=== PATIENT | male | born 1975 | race Native Hawaiian/Other Pacific Islander ===

== ENCOUNTER 2016-11-26 03:12 | Inpatient (IN) | payer SELFPAY ==
[~2016-11-26] VITALS: Ht 170.2 cm; Wt 77.3 kg
[2016-11-26] VITALS (7 sets, daily range): BP systolic 93–128; BP diastolic 52–82; PULSE 63–84; RESP 16–20; TEMP 98.4–99.5; O2SAT 93–100
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
[2016-11-26] MEDS ORDERED: MORPHINE SULFATE 4 MG/ML INJ IV PUSH ONE (04:45)
[2016-11-26] MEDS ORDERED: ONDANSETRON HCL 4 MG/2 ML VIAL IV PUSH ONE (04:45)
[2016-11-26] MEDS ORDERED: SODIUM CHLORIDE 0.9% FLUSH 10 ML FLUSH IV FLUSH PRN (05:00)
[2016-11-26] MEDS ORDERED: NALOXONE HCL 0.4 MG/ML AMP IV PRN ×2 (05:00→15:15)
[2016-11-26] MEDS ORDERED: HYDROmorphone HCL PF 1 MG/ML VIAL IV PUSH ONE (05:15)
[2016-11-26 05:16] LABS: AUTOMATED NEUTROPHIL # 11.9 TH/MM3 (1.8-7.7); BASOPHIL # 0.1 TH/MM3 (0-0.2); BASOPHIL % 0.5 % (0.0-2.0); EOSINOPHIL # 0.1 TH/MM3 (0-0.4); HEMATOCRIT 41.4 % (39.0-51.0); HEMO FLAGS DIFF FINAL; LYMPH % 9.4 % (9.0-44.0); LYMPHOCYTE # 1.4 TH/MM3 (1.0-4.8); MEAN CELL VOLUME 85.5 FL (80.0-100.0); MEAN CORPUSCULAR HEMOGLOBIN 29.5 PG (27.0-34.0); MEAN CORPUSCULAR HGB CONC 34.5 % (32.0-36.0); NEUT % 82.1 % (16.0-70.0); PLATELET COUNT 230 TH/MM3 (150-450); RED BLOOD COUNT 4.84 MIL/MM3 (4.50-5.90); RED CELL DISTRIBUTION WIDTH 12.9 % (11.6-17.2); WHITE BLOOD COUNT 14.4 TH/MM3 (4.0-11.0)
[2016-11-26] MEDS: SODIUM CHLOR 0.9% 1000 ML INJ 1,000 ML IV SCH (05:19)
[2016-11-26 05:28] LABS: APTT (PATIENT) 22.4 SEC (24.3-30.1); PROTHROMBIN TIME - PATIENT 10.8 SEC (9.8-11.6)
[2016-11-26 05:30] LABS: BICARBONATE 26.7 MEQ/L (21.0-32.0); POTASSIUM 3.9 MEQ/L (3.5-5.1)
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
[2016-11-26] MEDS ORDERED: SODIUM CHLORIDE 0.9% FLUSH 10 ML FLUSH IV FLUSH SCH (09:00)
[2016-11-26] MEDS: MORPHINE SULFATE 4 MG/ML INJ IV PUSH PRN ×2 (10:43→13:37)
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
[2016-11-26] MEDS ORDERED: ACETAMINOPHEN/HYDROcodone 325 MG/5 MG TAB PO PRN (15:15)
[2016-11-26] MEDS ORDERED: HYDROmorphone HCL PF 1 MG/ML VIAL IV PRN ×2 (15:15)
[2016-11-26] MEDS: ACETAMINOPHEN/HYDROcodone 325 MG/10 MG TAB PO PRN ×2 (15:32→21:06)
[2016-11-26] MEDS: HYDROmorphone HCL PF 1 MG/ML VIAL IV PRN ×3 (16:27→23:16)
[2016-11-27] MEDS ORDERED: POVIDONE IODINE 5% (ANTISEPSIS KIT) 4 APPLICATIONS EACH NARE PRN (01:45)
[2016-11-27] MEDS ORDERED: CHLORHEXIDINE GLUCONATE 2 % 1 PACK (2 CLOTHS) TOPICAL PRN (01:45)
[2016-11-27] MEDS ORDERED: INSULIN HUMAN REGULAR 1,000 UNITS/10 ML VIAL SQ PRN (01:45)
[2016-11-27] MEDS ORDERED: LACTATED RINGER'S 1000 ML IV PRN (01:45)
[2016-11-27] MEDS ORDERED: SODIUM CHLORID 0.9% 500 ML IV PRN (01:45)
[2016-11-27 04:05] VITALS: BP 118/72; PULSE 86; RESP 16; TEMP 99.2; O2SAT 96
[2016-11-27] MEDS: HYDROmorphone HCL PF 1 MG/ML VIAL IV PRN (05:59)
[2016-11-27 06:24] LABS: AUTOMATED NEUTROPHIL # 10.6 TH/MM3 (1.8-7.7); BASOPHIL % 0.2 % (0.0-2.0); EOSINOPHIL # 0.1 TH/MM3 (0-0.4); EOSINOPHIL % 0.6 % (0.0-4.0); HEMATOCRIT 37.9 % (39.0-51.0); HEMO FLAGS DIFF FINAL; LYMPH % 7.5 % (9.0-44.0); LYMPHOCYTE # 0.9 TH/MM3 (1.0-4.8); MEAN CELL VOLUME 86.1 FL (80.0-100.0); MEAN CORPUSCULAR HEMOGLOBIN 29.5 PG (27.0-34.0); MEAN CORPUSCULAR HGB CONC 34.3 % (32.0-36.0); MONO % 6.9 % (0.0-8.0); NEUT % 84.8 % (16.0-70.0); PLATELET COUNT 189 TH/MM3 (150-450); RED CELL DISTRIBUTION WIDTH 12.6 % (11.6-17.2); WHITE BLOOD COUNT 12.5 TH/MM3 (4.0-11.0)
--- NOTE | 2016-11-27 06:33 | PD.ORT.PN ---
Subjective Subjective Remarks pain controlled Objective Vitals Vital Signs Date Time Temp Pulse Resp B/P Pulse Ox O2 Delivery O2 Flow Rate FiO2 11/27/16 04:05 99.2 86 16 118/72 96 11/26/16 23:30 99.2 78 19 125/82 93 11/26/16 21:04 98.6 70 20 123/74 97 11/26/16 17:14 98.9 70 18 128/79 99 11/26/16 16:57 20 11/26/16 16:32 20 11/26/16 14:05 99.5 63 16 112/74 99 I/O 11/26/16 11/26/16 11/26/16 11/27/16 11/27/16 11/27/16 07:00 15:00 23:00 07:00 15:00 23:00 Intake Total 240 ml Output Total 350 ml Balance -110 ml Intake Oral 240 ml Output Urine Total 350 ml # Bowel Movements 0 Result Diagram: 11/27/16 0543 11/26/16 0455 Imaging Last 24 hours Impressions Shoulder X-Ray 11/26/16317 Signed Impressions: Service Date/Time: Saturday, November 26, 2016 03:41 - CONCLUSION: Unremarkable limited examination of the right shoulder. Jose Daniel Hunter MD Shoulder X-Ray 11/26/16317 Signed Impressions: Service Date/Time: Saturday, November 26, 2016 03:37 - CONCLUSION: Humeral neck fracture. Jose Daniel Hunter MD Head CT 11/26/16317 Signed Impressions: Service Date/Time: Saturday, November 26, 2016 03:47 - CONCLUSION: Normal examination except for extensive sinus disease. Jose Daniel Hunter MD Chest X-Ray 11/26/16317 Signed Impressions: Service Date/Time: Saturday, November 26, 2016 03:35 - CONCLUSION: Normal examination. Jose Daniel Hunter MD Cervical Spine CT 11/26/16317 Signed Impressions: Service Date/Time: Saturday, November 26, 2016 03:47 - CONCLUSION: Normal examination except mild degenerative arthritis at the C4-5 level. Jose Daniel Hunter MD Objective Remarks LUE: no sling. NVI Assessment & Plan Assessment and Plan 1) Left Proximal Humerus Fx - surgery today -NPO -sign consents Moise Pacheco Jr. Nov 27, 2016 06:33
[2016-11-27 06:39] LABS: BICARBONATE 26.8 MEQ/L (21.0-32.0); POTASSIUM 3.6 MEQ/L (3.5-5.1)
[2016-11-27 08:00] VITALS: BP 117/76; PULSE 74; RESP 20; TEMP 99.1; O2SAT 92
[2016-11-27] MEDS ORDERED: GENTAMICIN SULFATE 80 MG/2 ML VIAL ONE (09:35)
[2016-11-27] MEDS ORDERED: ACETAMINOPHEN 1000 MG/100 ML VIAL IV ONE (10:01)
[2016-11-27] MEDS ORDERED: FAMOTIDINE 20 MG/2 ML VIAL ONE (10:02)
[2016-11-27] MEDS ORDERED: fentaNYL CITRATE 250 MCG/5 ML AMP ONE ×2 (10:02→12:11)
[2016-11-27] MEDS ORDERED: MIDAZOLAM HCL 2 MG/2 ML VIAL ONE (10:02)
[2016-11-27] MEDS ORDERED: ONDANSETRON HCL 4 MG/2 ML VIAL ONE (10:02)
[2016-11-27] MEDS ORDERED: SODIUM CHLOR 0.9% 250 ML INJ 250 ML ONE (10:10)
[2016-11-27] MEDS ORDERED: VANCOMYCIN HCL 1000 MG VIAL ONE (10:10)
[2016-11-27] MEDS ORDERED: ceFAZolin 2 GM PREMIX 50 ML ONE (10:10)
[2016-11-27] MEDS ORDERED: SODIUM CHLORIDE 0.9% FLUSH 5 ML FLUSH IVF PRN (10:30)
[2016-11-27] MEDS ORDERED: ONDANSETRON HCL 4 MG/2 ML VIAL IVP PRN (10:30)
[2016-11-27] MEDS ORDERED: diphenhydrAMINE HCL 25 MG CAP PO PRN (10:30)
--- NOTE | 2016-11-27 10:30 | PD.OP ---
cc: William Villarreal MD Operative Report Date of Surgery: Nov 27, 2016 Preoperative Diagnosis: Displaced left proximal humerus fracture Postoperative Diagnosis: Procedure: Displaced left proximal humerus fracture Anesthesia: Gen. Surgeon: William Villarreal Managing Consultant Clinical Professor(s): RODNEY Hernández PA-C The surgical procedure was assisted by my physician marketing operations assistant. My P.A. presence was necessary throughout this case for the manipulation and positioning of the surgical extremity. My P.A. was assisting me throughout the duration of this procedure. The skill set of a physician marketing operations assistant was medically necessary to complete this procedure. During the surgical case the surgical assistant certified was working at the back table and the physician marketing operations assistant was directly assisting me. Operation and Findings: Patient was seen and evaluated preoperatively. Patient was found to have a displaced proximal humerus fracture. The risks and benefits of surgical and nonsurgical options were discussed in detail and informed consent was obtained for surgery. Patient was brought to the operating room and placed on or table. IV sedation and GETA were administered by anesthesiologist. Antibiotics were given prior to incision. Operative arm and shoulder were prepped with alcohol followed by Hibiclens and draped usual sterile fashion. Timeout procedure was performed. Procedure began with a 5 inch incision over the anterior shoulder. Cephalic vein was identified. A deltopectoral approach was utilized. The fracture was now visualized. Soft tissue was retracted. Attention was now turned to reduction. Gentle traction was applied. The humeral shaft was reduced to the humeral head. Fracture was manipulated to achieve excellent reduction. Multiplanar fluoroscopy confirmed well aligned fracture. Multiple K wires were used to hold provisional fixation. A Synthes proximal humerus plate was selected. Plate was provisionally held in place K wires. 3.5 cortical screws were used to compress plate to bone. Fluoroscopy confirmed appropriate plate placement and fracture reduction. Multiple locking screws were now placed in the humeral head. Screws were predrilled and premeasured for appropriate length. Care was taken not to penetrate the articular surface. Additional screws were placed in the humeral shaft. Final fluoroscopy revealed well aligned fracture with well-placed hardware. Wound was thoroughly irrigated. Fascia was closed with #1 Vicryl, subcutaneous tissues closed with 3-0 Vicryl, and skin was closed with ana. Sterile dressings were applied. Patient was placed into a sling. Patient was awakened and transferred to recovery in stable condition. Needle and sponge counts were correct. William Villarreal MD Nov 27, 2016 10:30 William Villarreal MD Nov 27, 2016 10:30
[2016-11-27] MEDS ORDERED: BACITRACIN TOP OINT 15 GM TUBE ONE (11:32)
[2016-11-27] MEDS ORDERED: HYDR-3366 PO (11:55)
--- NOTE | 2016-11-27 11:59 | HHI.FF ---
Face to Face Verification Diagnosis: (1) Fracture of neck of left humerus Occupational Therapy Left UE Weight Bearing: Non WB Left UE Range of Motion: Pendular Nursing Dressing Changes: Daily dressing change, Xeroform, Coverderm/Primapore Additional Instructions Bacitracin and adaptic over left elbow I have seen patient La Black on 11/27/16. My clinical findings support the need for the requested home health care services because: Limited ability to care for self I certify that my clinical findings support that this patient is homebound because: Post-op weakness Moise Pacheco Jr. Nov 27, 2016 11:59
[2016-11-27] MEDS ORDERED: PROPOFOL 200 MG/20 ML AMP IV ONE (12:00)
[2016-11-27] MEDS ORDERED: NEOSTIGMINE 3 MG/3 ML SYR IV ONE (12:00)
[2016-11-27] MEDS ORDERED: ONDANSETRON HCL 4 MG/2 ML VIAL IV PUSH ONE (12:00)
[2016-11-27] MEDS ORDERED: *morphine SULFATE 8 MG/ML PERIprocedure ONLY ONE (12:38)
--- NOTE | 2016-11-27 13:01 | RADRPT ---
EXAM DATE/TIME: 11/27/2016 11:17 [facility] COMPARISON: No previous studies available for comparison. INDICATIONS : ORIF left proximal humerus. MEDICAL HISTORY : None. SURGICAL HISTORY : None. ENCOUNTER: Subsequent ACUITY: 2 days PAIN SCORE: Non-responsive. LOCATION: Left proximal humerus. FINDINGS: Side plate and multiple screws traverse the humerus with excellent anatomical alignment of the fractu re fragments. CONCLUSION: Intact postsurgical changes for technique. Susu Siegel MD on November 27, 2016 at 12:59 Board Certified Radiologist. This report was verified electronically.
[2016-11-27 13:10] VITALS: BP 118/82; PULSE 57; RESP 20; TEMP 98.8; O2SAT 98
[2016-11-27] MEDS: CALCIUM/VITAMIN D 250 MG/125 U TAB PO SCH ×2 (13:21→18:52)
[2016-11-27] MEDS: ACETAMINOPHEN/HYDROcodone 325 MG/10 MG TAB PO PRN ×2 (13:21→18:51)
[2016-11-27] MEDS: MORPHINE SULFATE 4 MG/ML INJ IV PUSH PRN ×2 (15:48→20:01)
[2016-11-27 16:00] VITALS: BP 116/79; PULSE 77; RESP 20; TEMP 97.5; O2SAT 91
--- NOTE | 2016-11-27 17:21 | HHI.PR ---
Subjective Remarks "I hurt all over." Pt seen after surgery in his room. Pt denied fever, N/V/D/C, cough, shortness of breath. Voiced concerns about being able to move his left arm and care for himself at home. Pt did not appear to be in acute distress. Objective Vitals Vital Signs Date Time Temp Pulse Resp B/P Pulse Ox O2 Delivery O2 Flow Rate FiO2 11/27/16 14:01 16 11/27/16 13:10 98.8 57 20 118/82 98 11/27/16 12:45 97.8 67 14 120/76 97 Nasal Cannula 2 11/27/16 12:30 67 14 138/86 97 Nasal Cannula 2 11/27/16 12:15 63 14 131/81 96 Nasal Cannula 2 11/27/16 12:00 69 14 136/82 97 Nasal Cannula 4 11/27/16 11:55 97.8 82 14 126/86 97 Nasal Cannula 4 11/27/16 08:00 99.1 74 20 117/76 92 11/27/16 07:30 16 11/27/16 04:05 99.2 86 16 118/72 96 11/26/16 23:30 99.2 78 19 125/82 93 11/26/16 21:04 98.6 70 20 123/74 97 11/26/16 17:14 98.9 70 18 128/79 99 I/O 11/26/16 11/26/16 11/26/16 11/27/16 11/27/16 11/27/16 07:00 15:00 23:00 07:00 15:00 23:00 Intake Total 240 ml 900 ml Output Total 350 ml 150 ml Balance -110 ml 750 ml Intake Oral 240 ml Other 900 ml Output Urine Total 350 ml Estimated Blood Loss 150 ml # Voids 0 # Bowel Movements 0 0 Result Diagram: 11/27/16 0543 11/27/16 0543 Imaging Last 24 hours Impressions Shoulder X-Ray 11/27/16 0000 Signed Impressions: Service Date/Time: November 11:17 - CONCLUSION: Intact postsurgical changes for technique. Susu Siegel MD Objective Remarks GENERAL: SKIN: Warm and dry. Abrasions noted on face. HEAD: Normocephalic. EYES: No scleral icterus. No injection or drainage. NECK: Supple, trachea midline. No JVD or lymphadenopathy. CARDIOVASCULAR: Regular rate and rhythm without murmurs, gallops, or rubs. RESPIRATORY: Breath sounds equal bilaterally. No accessory muscle use. GASTROINTESTINAL: Abdomen soft, non-tender, nondistended. MUSCULOSKELETAL: No cyanosis, or edema. Left arm noted to have surgical dressing and was in a sling. BACK: Nontender without obvious deformity. Procedures Surgical repair of fractured left humerus. Medications and IVs Current Medications Medications (Trade) Dose Ordered Sig/Alfredo Route Start Time Stop Time Status Last Admin (NS 1000 ml Inj) 1,000 ml @ 125 mls/hr Q8H IV 11/26/16 04:45 11/26/16 05:19 (Dilaudid Pf Inj) 0.5 mg Q3H PRN IV 11/26/16 15:15 (Dilaudid Pf Inj) 1 mg Q3H PRN IV 11/26/16 15:15 11/27/16 05:59 (Narcan Inj) 0.4 mg UNSCH PRN IV 11/26/16 15:15 Neomycin/ Polymyxin/ Bacitracin 1 applic 1 applic DAILY TOPICAL 11/26/16 17:30 Lactated Ringer's 1,000 ml @ 30 mls/hr Q24H PRN IV 11/27/16 01:45 11/30/16 01:44 (NS 500 ml Inj) 500 ml @ 30 mls/hr [id number] PRN IV 11/27/16 01:45 11/30/16 01:44 (NS Flush) 2 ml UNSCH PRN IVF 11/27/16 10:30 (NS Flush) 2 ml BID IVF 11/27/16 21:00 Senna/Docusate Sodium 1 tab 1 tab BID PO 11/27/16 21:00 (Ancef 2 Gm Premix) 50 ml @ 100 mls/hr Q8H IV 11/27/16 18:00 11/28/16 10:29 (Fordyce 10-325 Mg) 1 tab Q3H PRN PO 11/27/16 10:30 11/27/16 13:21 (Zofran Inj) 4 mg Q4H PRN IVP 11/27/16 10:30 (Oscal-D 250-125) 250 mg TID PO 11/27/16 13:00 11/27/16 13:21 (Benadryl) 25 mg Q6H PRN PO 11/27/16 10:30 (Morphine Inj) 4 mg Q3H PRN IV PUSH 11/27/16 10:30 11/27/16 15:48 Urinary Catheter: No Vascular Central Line Catheter: No A/P Problem List: (1) Fracture of neck of left humerus ICD Code: S42.212A Status: Acute (2) Closed head injury ICD Code: S09.90XA Status: Acute (3) Multiple abrasions ICD Code: T14.8 Status: Acute Plan: (4) Tobacco abuse ICD Code: Z72.0 Status: Acute Assessment and Plan Fracture of neck of left humerus Orthopedics has seen pt and is planning on surgery tomorrow. they have placed pt on normal diet for today and NPO after midnight. Pain to be managed on PRN basis however with his low blood pressure, strong narcotic use will be avoided. 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 11/27/16 Pt underwent surgical repair. Pain and rehabilitation to be managed by orthopedics. At time of interview, pt voiced significant pain. Closed head injury Monitor with neuro checks. 11/27/16 No change in mental status noted/reported. Continue neuro-checks. Multiple abrasions Wound care 11/27/16 Abrasions are being attended to by nursing staff. tobacco Abuse Pt informed he will not be able to smoke while in hospital. Nicoderm patch may adversely effect healing process. Withdrawal to be addressed with other agents. 11/27/16 Pt has not required nicotine supplementation or adjunctive agents for withdrawal within the past 24 hours. Written by Jaime Bearden, acting as scribe for Dr. Dillard on 11/27/16 at 17:20. This note was transcribed by [email or web address] SMITH. I, Dr. Lisa Dillard personally performed the history, physical exam, and medical decision making; and confirmed the accuracy of the information in the transcribed note. Authenticated by Dr. Lisa Dillard on 11/27/16 at 17:20. Problem Qualifiers (1) Fracture of neck of left humerus: Qualified Code: S42.212A - Fracture of neck of left humerus, closed, initial encounter (2) Closed head injury: Qualified Code: S09.90XA - Closed head injury, initial encounter Jaime Bearden Jr. Nov 27, 2016 17:21 Lisa Dillard MD Nov 27, 2016 18:28
[2016-11-27] MEDS: ceFAZolin 2 GM PREMIX 50 ML IV SCH (18:56)
[2016-11-27] MEDS: DOCUSATE SODIUM 50 MG/SENNA 8.6 MG TAB PO SCH (20:01)
[2016-11-27] MEDS: SODIUM CHLORIDE 0.9% FLUSH 5 ML FLUSH IVF SCH (20:01)
[2016-11-27 20:55] VITALS: BP 116/68; PULSE 95; RESP 17; TEMP 100; O2SAT 94
[2016-11-27 23:05] VITALS: BP 118/73; PULSE 92; RESP 18; TEMP 100; O2SAT 94
[2016-11-28] MEDS: ceFAZolin 2 GM PREMIX 50 ML IV SCH (02:59)
[2016-11-28] MEDS: ACETAMINOPHEN/HYDROcodone 325 MG/10 MG TAB PO PRN ×5 (03:15→23:19)
[2016-11-28] MEDS: SODIUM CHLOR 0.9% 1000 ML INJ 1,000 ML IV SCH ×2 (04:45→20:45)
[2016-11-28 05:00] VITALS: BP 122/77; PULSE 79; RESP 19; TEMP 100.2; O2SAT 94
--- NOTE | 2016-11-28 06:51 | PD.ORT.PN ---
Subjective Subjective Remarks pain controlled Objective Vitals Vital Signs Date Time Temp Pulse Resp B/P Pulse Ox O2 Delivery O2 Flow Rate FiO2 11/28/16 05:00 100.2 79 19 122/77 94 11/27/16 23:05 100.0 92 18 118/73 94 11/27/16 20:55 100.0 95 17 116/68 94 11/27/16 19:43 16 11/27/16 16:20 16 11/27/16 16:00 97.5 77 20 116/79 91 11/27/16 13:10 98.8 57 20 118/82 98 11/27/16 12:45 97.8 67 14 120/76 97 Nasal Cannula 2 11/27/16 12:30 67 14 138/86 97 Nasal Cannula 2 11/27/16 12:15 63 14 131/81 96 Nasal Cannula 2 11/27/16 12:00 69 14 136/82 97 Nasal Cannula 4 11/27/16 11:55 97.8 82 14 126/86 97 Nasal Cannula 4 11/27/16 08:00 99.1 74 20 117/76 92 11/27/16 07:30 16 I/O 11/27/16 11/27/16 11/27/16 11/28/16 11/28/16 11/28/16 07:00 15:00 23:00 07:00 15:00 23:00 Intake Total 1000 ml 480 ml Output Total 500 ml Balance 500 ml 480 ml Intake Oral 100 ml 480 ml Other 900 ml Output Urine Total 350 ml Estimated Blood Loss 150 ml # Voids 0 1 # Bowel Movements 0 0 0 Result Diagram: 11/27/16 0543 11/27/16 0543 Imaging Last 24 hours Impressions Shoulder X-Ray 11/26/16317 Signed Impressions: Service Date/Time: Saturday, November 26, 2016 03:41 - CONCLUSION: Unremarkable limited examination of the right shoulder. Jose Daniel Hunter MD Shoulder X-Ray 11/26/16317 Signed Impressions: Service Date/Time: Saturday, November 26, 2016 03:37 - CONCLUSION: Humeral neck fracture. Jose Daniel Hunter MD Head CT 11/26/16317 Signed Impressions: Service Date/Time: Saturday, November 26, 2016 03:47 - CONCLUSION: Normal examination except for extensive sinus disease. Jose Daniel Hunter MD Chest X-Ray 11/26/16317 Signed Impressions: Service Date/Time: Saturday, November 26, 2016 03:35 - CONCLUSION: Normal examination. Jose Daniel Hunter MD Cervical Spine CT 11/26/16317 Signed Impressions: Service Date/Time: Saturday, November 26, 2016 03:47 - CONCLUSION: Normal examination except mild degenerative arthritis at the C4-5 level. Jose Daniel Hunter MD Objective Remarks Left upper extremity: Sling and swath in place. Clean dry dressings intact. Dressings over elbow for abrasion with bacitracin and Xeroform. Distally intact sensation with full extension and flexion of fingers. Good capillary refills Assessment & Plan Assessment and Plan 1) Left Proximal Humerus Fx ORIF POD 1 Nonweightbearing left upper extremity with sling and swath. Wear at all times except for physical therapy Physical therapy for pendulum swings for education Daily dressing changes beginning POD 2 Plan for discharge tomorrow since he lives alone. Oral pain control Incision must stay clean and dry with no showers Follow-up with Dr. Villarreal or [facility] in 2 weeks Moise Pacheco Jr. Nov 28, 2016 06:51
[2016-11-28 08:00] VITALS: BP 125/79; PULSE 90; RESP 18; TEMP 97.9; O2SAT 96
[2016-11-28] MEDS: NEOMYCIN/POLYMYXIN/BACITRACIN OINT 15 GM TUBE TOPICAL SCH ×2 (09:00→10:31)
[2016-11-28] MEDS: SODIUM CHLORIDE 0.9% FLUSH 5 ML FLUSH IVF SCH ×2 (09:00→20:19)
[2016-11-28] MEDS: CALCIUM/VITAMIN D 250 MG/125 U TAB PO SCH ×3 (10:28→17:39)
[2016-11-28] MEDS: DOCUSATE SODIUM 50 MG/SENNA 8.6 MG TAB PO SCH ×2 (10:28→20:18)
--- NOTE | 2016-11-28 11:52 | HHI.PR ---
Subjective Remarks The patient was in the morning. Sitting in the chair, daily prescription medications. Still requiring IV pain medications. Transitioned to by mouth pain medications today, plan to discharge tomorrow for her. Denies fever chills nausea or vomiting. No constipation. No tremors. No alcohol withdrawal symptoms this time. Objective Vitals Vital Signs Date Time Temp Pulse Resp B/P Pulse Ox O2 Delivery O2 Flow Rate FiO2 11/28/16 08:00 97.9 90 18 125/79 96 11/28/16 05:00 100.2 79 19 122/77 94 11/27/16 23:05 100.0 92 18 118/73 94 11/27/16 20:55 100.0 95 17 116/68 94 11/27/16 19:43 16 11/27/16 16:20 16 11/27/16 16:00 97.5 77 20 116/79 91 11/27/16 13:10 98.8 57 20 118/82 98 11/27/16 12:45 97.8 67 14 120/76 97 Nasal Cannula 2 11/27/16 12:30 67 14 138/86 97 Nasal Cannula 2 11/27/16 12:15 63 14 131/81 96 Nasal Cannula 2 11/27/16 12:00 69 14 136/82 97 Nasal Cannula 4 11/27/16 11:55 97.8 82 14 126/86 97 Nasal Cannula 4 I/O 11/27/16 11/27/16 11/27/16 11/28/16 11/28/16 11/28/16 07:00 15:00 23:00 07:00 15:00 23:00 Intake Total 1000 ml 480 ml 720 ml Output Total 500 ml Balance 500 ml 480 ml 720 ml Intake Oral 100 ml 480 ml 720 ml Other 900 ml Output Urine Total 350 ml Estimated Blood Loss 150 ml # Voids 0 1 3 1 # Bowel Movements 0 0 0 0 1 Result Diagram: 11/27/16 0543 11/27/16 0543 Imaging Last Impressions Shoulder X-Ray 11/27/16 0000 Signed Impressions: Service Date/Time: November 11:17 - CONCLUSION: Intact postsurgical changes for technique. Susu Siegel MD Head CT 11/26/16 0318 Signed Impressions: Service Date/Time: Saturday, November 26, 2016 03:47 - CONCLUSION: Normal examination except for extensive sinus disease. Jose Daniel Hunter MD Chest X-Ray 11/26/16317 Signed Impressions: Service Date/Time: Saturday, November 26, 2016 03:35 - CONCLUSION: Normal examination. Jose Daniel Hunter MD Cervical Spine CT 11/26/16317 Signed Impressions: Service Date/Time: Saturday, November 26, 2016 03:47 - CONCLUSION: Normal examination except mild degenerative arthritis at the C4-5 level. Jose Daniel Hunter MD Objective Remarks GENERAL: 41-year-old male, well-nourished to the patient, appears in no acute distress. SKIN: Warm and dry. Abrasions noted on face. HEAD: Normocephalic. EYES: No scleral icterus. No injection or drainage. NECK: Supple, trachea midline. No JVD or lymphadenopathy. CARDIOVASCULAR: Regular rate and rhythm without murmurs, gallops, or rubs. RESPIRATORY: Breath sounds equal bilaterally. No accessory muscle use. GASTROINTESTINAL: Abdomen soft, non-tender, nondistended. MUSCULOSKELETAL: No cyanosis, or edema. Left arm noted to have surgical dressing and was in a sling. BACK: Nontender without obvious deformity. Procedures Surgical repair of fractured left humerus. A/P Problem List: (1) Fracture of neck of left humerus ICD Code: S42.212A Status: Acute (2) Closed head injury ICD Code: S09.90XA Status: Acute (3) Multiple abrasions ICD Code: T14.8 Status: Acute (4) Tobacco abuse ICD Code: Z72.0 Status: Acute Assessment and Plan Fracture of neck of left humerus Orthopedics following , Dr Cuellar Pain to be managed on PRN basis however with his low blood pressure, strong narcotic use will be avoided. Pain meds per pain scale as tolerated. Antiemetics, laxatives, softeners S/P Surgical repair of fractured left humerus by Dr Cuellar Closed head injury Monitor with neuro checks. No change in mental status noted/reported. Continue neuro-checks. Multiple abrasions- Wound care. Abrasions are being attended to by nursing staff. Tobacco Abuse Pt informed he will not be able to smoke while in hospital. Nicoderm patch may adversely effect healing process. Withdrawal to be addressed with other agents. Pt has not required nicotine supplementation or adjunctive agents for withdrawal within the past 24 hours. EtOH use. Counselled. Monitor for withdrawal symptoms. CIWA protocol. DC telemetry. Discussed with the patient., nurse Problem Qualifiers (1) Fracture of neck of left humerus: Qualified Code: S42.212A - Fracture of neck of left humerus, closed, initial encounter (2) Closed head injury: Qualified Code: S09.90XA - Closed head injury, initial encounter Lisa Dillard MD Nov 28, 2016 11:52
[2016-11-28 12:00] VITALS: BP 123/78; PULSE 87; RESP 18; TEMP 98; O2SAT 92
[2016-11-28] MEDS ORDERED: ceFAZolin 2 GM PREMIX 50 ML IV ONE (13:22)
[2016-11-28 16:00] VITALS: BP 118/69; PULSE 97; RESP 18; TEMP 99.6; O2SAT 92
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
[2016-11-28 20:00] VITALS: BP 127/69; PULSE 86; RESP 24; TEMP 98; O2SAT 90
[2016-11-29] VITALS: BP 103/47; PULSE 73; RESP 20; TEMP 96.9; O2SAT 95
[2016-11-29] MEDS: SODIUM CHLOR 0.9% 1000 ML INJ 1,000 ML IV SCH (00:19)
[2016-11-29] MEDS: ACETAMINOPHEN/HYDROcodone 325 MG/10 MG TAB PO PRN ×3 (03:32→12:51)
[2016-11-29 04:00] VITALS: BP 122/60; PULSE 99; RESP 22; TEMP 99; O2SAT 90
[2016-11-29 08:00] VITALS: BP 111/72; PULSE 85; RESP 18; TEMP 98.1; O2SAT 94
--- NOTE | 2016-11-29 08:06 | PD.ORT.PN ---
Subjective Subjective Remarks Moderate left shoulder pain but controlled with PO meds. Plans to go home today. No new complaints. No other questions or concerns. Objective Vitals Vital Signs Date Time Temp Pulse Resp B/P Pulse Ox O2 Delivery O2 Flow Rate FiO2 11/29/16 04:00 99.0 99 22 122/60 90 11/29/16 00:00 96.9 73 20 103/47 95 11/28/16 20:00 98.0 86 24 127/69 90 11/28/16 19:20 Room Air 11/28/16 18:46 16 11/28/16 16:00 99.6 97 18 118/69 92 11/28/16 12:00 98.0 87 18 123/78 92 I/O 11/28/16 11/28/16 11/28/16 11/29/16 11/29/16 11/29/16 07:00 15:00 23:00 07:00 15:00 23:00 Intake Total 720 ml 700 ml 780 ml 240 ml Balance 720 ml 700 ml 780 ml 240 ml Intake Oral 720 ml 600 ml 780 ml 240 ml IV Total 100 ml # Voids 3 5 2 1 # Bowel Movements 0 2 0 0 Result Diagram: 11/27/16 0543 11/27/16 0543 Imaging Last 24 hours Impressions Shoulder X-Ray 11/26/16317 Signed Impressions: Service Date/Time: Saturday, November 26, 2016 03:41 - CONCLUSION: Unremarkable limited examination of the right shoulder. Jose Daniel Hunter MD Shoulder X-Ray 11/26/16317 Signed Impressions: Service Date/Time: Saturday, November 26, 2016 03:37 - CONCLUSION: Humeral neck fracture. Jose Daniel Hunter MD Head CT 11/26/16317 Signed Impressions: Service Date/Time: Saturday, November 26, 2016 03:47 - CONCLUSION: Normal examination except for extensive sinus disease. Jose Daniel Hunter MD Chest X-Ray 11/26/16317 Signed Impressions: Service Date/Time: Saturday, November 26, 2016 03:35 - CONCLUSION: Normal examination. Jose Daniel Hunter MD Cervical Spine CT 11/26/16317 Signed Impressions: Service Date/Time: Saturday, November 26, 2016 03:47 - CONCLUSION: Normal examination except mild degenerative arthritis at the C4-5 level. Jose Daniel Hunter MD Objective Remarks Sitting up in bed NAD LUE Sling in place, dressing c/d/i, mild swelling, no erythema Dressings over elbow for abrasion with bacitracin and Xeroform. Distally intact sensation with full extension and flexion of fingers. Good capillary refills Assessment & Plan Ortho Post Op Day #: 2 Problem List: Assessment and Plan 1) Left Proximal Humerus Fx ORIF POD 2 Nonweightbearing left upper extremity with sling and swath. Wear at all times except for physical therapy Physical therapy for pendulum swings for education Daily dressing changes beginning POD 2 PO pain control Ok to d/c home today. Follow-up with Dr. Villarreal or [place] in 2 weeks Melissa Lopez Nov 29, 2016 08:06
[2016-11-29] MEDS: DOCUSATE SODIUM 50 MG/SENNA 8.6 MG TAB PO SCH (08:07)
[2016-11-29] MEDS: CALCIUM/VITAMIN D 250 MG/125 U TAB PO SCH ×2 (08:07→12:51)
[2016-11-29] MEDS: SODIUM CHLORIDE 0.9% FLUSH 5 ML FLUSH IVF SCH (08:10)
[2016-11-29] MEDS: NEOMYCIN/POLYMYXIN/BACITRACIN OINT 15 GM TUBE TOPICAL SCH (08:11)
[2016-11-29] MEDS ORDERED: COLA100C3 PO (09:47)
[2016-11-29 12:00] VITALS: BP 121/72; PULSE 80; RESP 18; TEMP 97.2; O2SAT 92
== END 2016-11-29 13:20 | disposition home or self-care (01) | DRG 494 ==
LOC: NEPC 03:12 → NEDA 04:56 → NEDH 08:41 → N06A 14:01
PROVIDERS: ADMIT Hospitalist; ATTEND Hospitalist
PROC: 0PSD04Z Reposition Left Humeral Head with Internal Fixation Device, Open Approach (ICD-10-PCS; principal; 2016-11-27 10:04)
DX: S42.202A Unspecified fracture of upper end of left humerus, initial encounter for closed fracture (principal); S09.90XA Unspecified injury of head, initial encounter; F17.210 Nicotine dependence, cigarettes, uncomplicated; M79.89 Other specified soft tissue disorders; V03.10XA Pedestrian on foot injured in collision with car, pick-up truck or van in traffic accident, initial encounter; Y92.410 Unspecified street and highway as the place of occurrence of the external cause; J45.909 Unspecified asthma, uncomplicated; M19.90 Unspecified osteoarthritis, unspecified site; S00.81XA Abrasion of other part of head, initial encounter; S50.811A Abrasion of right forearm, initial encounter
CPT/HCPCS: 70450; 71010; 72125; 73030; 76000; 80048; 85025; 85610; 85730; C1713; J0131; J0690; J1170; J1580; J2250; J2270; J2405; J2710; J3010; J3370; J7030; J7050

== ENCOUNTER 2016-12-08 16:12 | Emergency (ER) | payer SELFPAY ==
[~2016-12-08 16:12] MED LIST: COLA100C3 PO; HYDR-3366 PO
[2016-12-08 16:13] VITALS: BP 135/89; PULSE 82; RESP 20; TEMP 98.3; O2SAT 99
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
[2016-12-08] MEDS ORDERED: CYCL1TAB29 PO (19:27)
[2016-12-08] MEDS ORDERED: DICL75TA PO (19:27)
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
== END 2016-12-08 19:51 | disposition home or self-care (01) ==
LOC: NEPK 16:12
DX: G89.18 Other acute postprocedural pain (principal); M25.512 Pain in left shoulder; J45.909 Unspecified asthma, uncomplicated; F17.210 Nicotine dependence, cigarettes, uncomplicated
CPT/HCPCS: 99283